=== PATIENT | male | born 1945 ===

== ENCOUNTER 2017-10-28 20:19 | Emergency (ER) | payer MEDICARE ==
[2017-10-28] MEDS ORDERED: NS 0.9% 1000 ML* 1,000 ML IV ONE (21:30)
--- NOTE | 2017-10-28 21:57 | RAD ---
Indication: Intermittent cough for 5 days. Sore throat limiting ability to eat. Comparison: No relevant prior exams available on the [facility] for comparison. Technique: Upright AP 2145 hours Report: Elevated lung volumes and mild prominence of the interstitial markings. Mild linear subsegmental atelectasis at the LEFT lung base. No focal pulmonary lesion, compelling alveolar consolidation concerning for pneumonia, pleural effusion, pneumothorax. Negative for cardiomegaly. Unremarkable central pulmonary vasculature. Mildly tortuous thoracic aorta. IMPRESSION: Stigmata of probable chronic obstructive pulmonary disease. No compelling evidence for pneumonia.
[2017-10-28 21:58] LABS: Hematocrit 38 % (42-52); Hemoglobin 12.9 g/dl (14.0-18.0); Mean Corpuscular HGB Conc 34 g/dl (31-36); Mean Corpuscular Hemoglobin 32 pg (27-31); Mean Corpuscular Volume 93 fL (80-94); Mean Platelet Volume 6.9 um3 (7.4-10.4); Platelet Count 241 10^3/ul (150-450); Red Blood Count 4.07 10^6/ul (4.0-5.4); Red Cell Distribution Width 13 % (10.5-15); White Blood Count 9.5 10^3/ul (3.5-10.8)
[2017-10-28 22:13] LABS: INR 0.85 (0.77-1.02)
[2017-10-28 22:15] LABS: EGFR Non-African American 116.9 (>60)
[2017-10-28 22:49] LABS: ABS Basophils 0.1 10^3/ul (0-0.2); ABS Eosinophils 2.4 10^3/ul (0-0.6); ABS Lymphocytes 3.4 10^3/ul (1.0-4.8); ABS Monocytes 0.4 10^3/ul (0-0.8); ABS Neutrophils 3.3 10^3/ul (1.5-7.7); ABS Nucleated RBC 0 10^3/ul; Eosinophil % 25.6 % (0-6); Lymphocyte % 35.5 % (25-47); Nucleated Red Blood Cells % 0.4
[2017-10-28 22:51] LABS: Monocytes % 2 % (0-7)
[2017-10-28] MEDS ORDERED: Codeine TAB* 30 MG PO ONE (23:00)
[2017-10-28] MEDS ORDERED: predniSONE TAB* 20 MG PO ONE (23:09)
[2017-10-28] MEDS ORDERED: Codeine TAB* 15 MG PO ONE (23:09)
--- NOTE | 2017-10-28 23:30 | ED ---
Nate Kay Angela, scribed for Wily Sapp MD on 10/28/17 at 2127 . Respiratory - HPI Summary HPI Summary: This pt is a 71 y/o male [facility] [place]/o nonproductive cough x7 days. Pt additionally has had a fever for the past 2 days. Son reports the pt has been having chest pain secondary to cough. Son states the pt was seen in the clinic and was given Ceftin to take BID. Pt has additionally been taking Robitussin and Tylenol. His last dose of Tylenol was last night. Denies hx of tobacco use. - History of Current Complaint Chief Complaint: EDUpperRespComplaint Stated Complaint: FEVER/COUGH Time Seen by Provider: 10/28/17 21:16 Hx Obtained From: Patient Onset/Duration: Lasting Days, Still Present Timing: Constant Pain Intensity: 0 Character: Cough (Nonproductive) Sputum Amount: None Aggravating Factor(s): Nothing Alleviating Factor(s): Nothing Associated Signs and Symptoms: Fever, Chest Pain with Cough - Allergy/Home Medications Allergies/Adverse Reactions: Allergies Allergy/AdvReac Type Severity Reaction Status Date / Time No Known Allergies Allergy Verified 09/29/17 11:26 PMH/Surg Hx/FS Hx/Imm Hx Endocrine/Hematology History: Denies: Hx Diabetes Cardiovascular History: Denies: Hx Hypertension Infectious Disease History: No Infectious Disease History: Denies: Traveled Outside the [place] in Last 30 Days - Family History Known Family History: Negative: Cardiac Disease - Social History Alcohol Use: None Substance Use Type: Reports: None Smoking Status (MU): Never Smoked Tobacco Review of Systems Positive: Fever Positive: Chest Pain Positive: Cough Musculoskeletal: Negative Skin: Negative Neurological: Negative All Other Systems Reviewed And Are Negative: Yes Physical Exam - Summary Physical Exam Summary: VITAL SIGNS: Reviewed. GENERAL: Patient is a well-developed and nourished male who is lying comfortable in the stretcher. Patient is not in any acute respiratory distress. HEAD AND FACE: No signs of trauma. No ecchymosis, hematomas or skull depressions. No sinus tenderness. EYES: PERRLA, EOMI x 2, No injected conjunctiva, no nystagmus. EARS: Hearing grossly intact. Ear canals and tympanic membranes are within normal limits. MOUTH: Oropharynx within normal limits. NECK: Supple, trachea is midline, no adenopathy, no JVD, no carotid bruit, no c- spine tenderness, neck with full ROM. CHEST: Symmetric, no tenderness at palpation LUNGS: Clear to auscultation bilaterally. No wheezing or crackles. CVS: Regular rate and rhythm, S1 and S2 present, no murmurs or gallops appreciated. ABDOMEN: Soft, non-tender. No signs of distention. No rebound no guarding, and no masses palpated. Bowel sounds are normal. EXTREMITIES: FROM in all major joints, no edema, no cyanosis or clubbing. NEURO: Alert and oriented x 3. No acute neurological deficits. Speech is normal and follows commands. SKIN: Dry and warm Triage Information Reviewed: Yes Vital Signs On Initial Exam: Initial Vitals Temp Pulse Resp BP Pulse Ox 97.5 F 87 18 152/67 96 10/28/17 20:22 10/28/17 20:22 10/28/17 20:22 10/28/17 20:22 10/28/17 20:22 Vital Signs Reviewed: Yes Diagnostics - Vital Signs Vital Signs Temp Pulse Resp BP Pulse Ox 10/28/17 20:22 97.5 F 87 18 152/67 96 - Laboratory Result Diagrams: 10/28/17 21:49 10/28/17 21:49 Lab Statement: Any lab studies that have been ordered have been reviewed, and results considered in the medical decision making process. - Radiology Chest XR Xray Interpretation: No Acute Changes - IMPRESSION: Stigmata of probable chornic obstructive pulmonary disease. No compelling evidence for pneumonia. Dr. Sapp has reviewed this radiology report. Radiology Interpretation Completed By: Radiologist Re-Evaluation - Re-Evaluation First Eval Re-Evaluation Time: 23:09 Comment: I reviewed lab and XR results with the pt and family. He will be discharged home. Pt is already on Ceftin, therefore he will be prescribed prednisone. Disposition - Course Assessment/Plan: Pt is a 71 y/o male who presents with nonproductive cough x7 days. Pt additionally has had a fever for the past 2 days. Son reports the pt has been having chest pain secondary to cough. Son states the pt was seen in the clinic and was given Ceftin to take BID. Pt has additionally been taking Robitussin and Tylenol. His last dose of Tylenol was last night. Influenza A and B are both negative. Rapid strep test is negative. Chest XR is negative. In the ED course the pt was given IV fluids, prednisone, and codeine. Pt will be discharged home with follow up from his PCP. Pt is already on Ceftin, therefore he will be given a prescription for prednisone. - Diagnoses Provider Diagnoses: Reactive airway disease, Viral syndrome Discharge - Sign-Out/Discharge Documenting (check all that apply): Discharge/Admit/Transfer - Discharge - Discharge Plan Condition: Stable Disposition: HOME Prescriptions: Codeine TAB* [Codeine Tab*] 15 mg PO QID PRN #20 tab MDD 4 PRN Reason: Cough predniSONE TAB* [Deltasone TAB*] 40 mg PO DAILY #10 tab Patient Education Materials: Viral Syndrome (ED) Referrals: No Primary Care Phys,NOPCP [Primary Care Provider] - [facility] [place] [facility] [Outside] Additional Instructions: Please follow up with your primary care provider. RETURN TO EMERGENCY DEPARTMENT FOR ANY NEW OR WORSENING SYMPTOMS. The documentation as recorded by the Nate rodrigez Angela accurately reflects the service I personally performed and the decisions made by , Wily Sapp MD.
[2017-10-28 23:54] VITALS: BP 140/72
== END 2017-10-28 23:57 | disposition home or self-care (01) ==
LOC: ED 20:19
DX: J45.909 Unspecified asthma, uncomplicated (principal); B34.9 Viral infection, unspecified; R07.89 Other chest pain
CPT/HCPCS: 36415; 71045; 80053; 84484; 85025; 85610; 85730; 86140; 87040; 87502; 87651; 96360; 99283; A9270-GY; J7512